=== PATIENT | female | born 1995 | race Caucasian/White ===

== ENCOUNTER 2017-06-23 22:47 | Emergency (ER) | payer OTHER ==
[~2017-06-23] VITALS: Ht 167.6 cm; Wt 63.6 kg
[2017-06-23 22:51] VITALS: BP 140/78; TEMP 98.2
[2017-06-24] MEDS ORDERED: BACTRIM DS 8001 TAB PO (00:29)
[2017-06-24 00:38] VITALS: PULSE 80
== END 2017-06-24 00:40 | disposition home or self-care (01) ==
LOC: COL.ER 22:47
DX: L02.214 Cutaneous abscess of groin (principal); L03.211 Cellulitis of face